=== PATIENT | female | born 1990 | race Caucasian/White ===

== ENCOUNTER 2017-01-18 18:21 | Inpatient (IN) | payer SELFPAY ==
[~2017-01-18] VITALS: Ht 160 cm; Wt 49.8 kg
[2017-01-18 18:24] VITALS: BP 158/96; PULSE 119; RESP 23; O2SAT 100
[2017-01-18] MEDS ORDERED: SODIUM CHLOR 0.9% 1000 ML INJ 1,000 ML IV ONE ×2 (18:45)
[2017-01-18] MEDS ORDERED: NALOXONE HCL 2 MG/2 ML VIAL IV PUSH ONE (18:45)
[2017-01-18] MEDS ORDERED: ONDANSETRON HCL 4 MG/2 ML VIAL IV PUSH ONE (18:45)
[2017-01-18 18:54] VITALS: O2SAT 100; O2SAT 98
--- NOTE | 2017-01-18 18:57 | PD ---
HPI Chief Complaint: OD/ Ingestion Time Seen by Provider: 18:32 Travel History International Travel<30 days: No Contact w/Intl Traveler<30days: No Traveled to known affect area: No History of Present Illness HPI Patient is a 27-year-old female who was brought to the emergency room by her friend after she overdosed on heroin. As per patient's friend, patient became unresponsive after using drugs today. Patient presented to the emergency room with in cardiopulmonary distress. CPR was initiated in triage [facility] Past Medical History Medical History: Denies Significant Hx ?: Unknown LMP: december 2016 Past Surgical History Surgical History: No Previous Surgery Social History Alcohol Use: Yes Tobacco Use: Yes (half pack a day ) Substance Use: Yes (heroid ) Allergies-Medications (Allergen,Severity, Reaction): Coded Allergies: No Known Allergies (Unverified , 01/18/17) Reported Meds & Prescriptions Reported Meds & Active Scripts Active No Active Prescriptions or Reported Medications Review of Systems ROS Limitations: Altered Mental Status Physical Exam Narrative GENERAL: patient with no pulses SKIN: Focused skin assessment blue and dusky HEAD: Atraumatic. Normocephalic. EYES: pinpoint. No scleral icterus. No injection or drainage. ENT: No nasal bleeding or discharge. Mucous membranes pink and moist. NECK: Trachea midline. No JVD. CARDIOVASCULAR: Asystole RESPIRATORY: No accessory muscle use. Clear to auscultation. Breath sounds equal bilaterally. GASTROINTESTINAL: Abdomen soft, non-tender, nondistended. Hepatic and splenic margins not palpable. MUSCULOSKELETAL: No obvious deformities. No clubbing. No cyanosis. No edema. Patient in cardiopulmonary arrest, no pulses Data Data Last Documented VS Vital Signs Date Time Temp Pulse Resp B/P (MAP) Pulse Ox O2 Delivery O2 Flow Rate FiO2 01/18/17 18:36 98 Room Air 01/18/17 18:36 2.00 01/18/17 18:28 121 21 01/18/17 18:24 158/96 (116) Orders Orders Complete Blood Count With Diff (01/18/17 18:33) Comprehensive Metabolic Panel (01/18/17 18:33) Urinalysis - C+S If Indicated (01/18/17 18:33) Electrocardiogram (01/18/17 18:33) Oximetry (01/18/17 18:33) Iv Access Insert/Monitor (01/18/17 18:33) Ecg Monitoring (01/18/17 18:33) Oxygen Administration (01/18/17 18:33) Beta Hcg (Quant/Titer) (01/18/17 18:33) Drug Screen, Random Urine (01/18/17 18:33) Alcohol (Ethanol) (01/18/17 18:33) Salicylates (Aspirin) (01/18/17 18:33) Tylenol (Acetaminophen) (01/18/17 18:33) B-Type Natriuretic Peptide (01/18/17 18:34) Ckmb (Isoenzyme) Profile (01/18/17 18:34) Prothrombin Time / Inr (Pt) (01/18/17 18:34) Act Partial Throm Time (Ptt) (01/18/17:34) Troponin I (01/18/17 18:34) Chest, Single Ap (01/18/17 18:34) Sodium Chlor 0.9% 1000 Ml Inj (Ns 1000 M (01/18/17 18:45) Naloxone Inj (Narcan Inj) (01/18/17 18:45) Ondansetron Inj (Zofran Inj) (01/18/17 18:45) Sodium Chlor 0.9% 1000 Ml Inj (Ns 1000 M (01/18/17 18:45) MDM Medical Decision Making Medical Screen Exam Complete: Yes Emergency Medical Condition: Yes Medical Record Reviewed: Yes Interpretation(s) Vital Signs Date Time Temp Pulse Resp B/P (MAP) Pulse Ox O2 Delivery O2 Flow Rate FiO2 01/18/17 18:36 98 Room Air 01/18/17 18:36 Room Air 2.00 01/18/17 18:28 121 21 97 Nasal Cannula 2.00 01/18/17 18:24 119 23 158/96 (116) 100 Differential Diagnosis drug overdose, cardiopulmonary arrest Narrative Course 27 year old male who presents to emergency room with cardiopulmonary arrest. patient was brought to the ER by her friend as she overdosed on heroine today. Patient was a cardiopulmonary arrest, with no pulses and no spontaneous respirations upon presentation to the emergency room. CPR was initiated, patient was bagged and acls protocol initiated After an IV line was established, patient was given Narcan 2 mg IV, zofran 4mg IV as well as IVF. Patient had spontaneous regain of pulses, patient became more arousable and eventually became conversive. Patient is currently alert and oriented x 3, reports that she accidently overdosed on heroine today. Denies si/hi. Plan to monitor patient on cardiac catheterization technologist at this time. Patient signed out to oncoming physician at change of shift. Scripts No Active Prescriptions or Reported Meds Lilliana Thorne DO Jan 18, 2017 18:57
[2017-01-18 19:18] LABS: HEMATOCRIT 41.9 % (35.0-46.0); MEAN CELL VOLUME 90.8 FL (80.0-100.0); MEAN CORPUSCULAR HEMOGLOBIN 30.8 PG (27.0-34.0); MEAN CORPUSCULAR HGB CONC 33.9 % (32.0-36.0); PLATELET COUNT 471 TH/MM3 (150-450); RED BLOOD COUNT 4.61 MIL/MM3 (4.00-5.30); RED CELL DISTRIBUTION WIDTH 13.7 % (11.6-17.2); WHITE BLOOD COUNT 22.6 TH/MM3 (4.0-11.0)
[2017-01-18 19:19] LABS: HEMO FLAGS AUTO DIFF
--- NOTE | 2017-01-18 19:25 | RADRPT ---
EXAM DATE/TIME: 01/18/2017 18:51 [place] COMPARISON: No previous studies available for comparison. INDICATIONS : Cardiac Distress MEDICAL HISTORY : None. SURGICAL HISTORY : None. ENCOUNTER: Initial ACUITY: 1 day PAIN SCORE: Non-responsive. LOCATION: Bilateral chest FINDINGS: A single view of the chest demonstrates the lungs to be symmetrically aerated without evidence of mas s, infiltrate or effusion. The cardiomediastinal contours are unremarkable. Osseous structures are intact. CONCLUSION: No acute disease. Kurt Adames MD on January 18, 2017 at 19:23 Board Certified Radiologist. This report was verified electronically.
[2017-01-18 19:30] LABS: APTT (PATIENT) 26.3 SEC (24.3-30.1); PROTHROMBIN TIME - PATIENT 11.3 SEC (9.8-11.6)
[2017-01-18 19:41] LABS: BACTERIA, URINE RARE /hpf; BLOOD, URINE SMALL (NEG); COMMENT (UR) CULT NOT INDICATED; CULTURE IF INDICATED CULT NOT INDICATED; GLUCOSE,URINE NEG (NEG); KETONE, URINE NEG (NEG); NITRITE,URINE NEG (NEG); PH, URINE 5.5 (5.0-8.5); SQUAMOUS EPITHELIAL CELL URINE 7 /hpf (0-5); URINE COLOR YELLOW (YELLW/STRAW)
[2017-01-18 19:43] LABS: ALT (GPT) 177 U/L (10-53)
[2017-01-18 19:48] LABS: NEUTROPHIL # MANUAL DIFF 12.4 TH/MM3 (1.8-7.7); POLYS (SEG NEUTROPHILS) 55 % (16-70); WBC DIFF SAMPLE 100
[2017-01-18 19:48] LABS: ALKALINE PHOSPHATASE 118 U/L (45-117); ANION GAP 14 MEQ/L (5-15); AST (GOT) 67 U/L (15-37); BETA HCG QUANT LESS THAN 1 MIU/ML (0-5); BICARBONATE 19.2 MEQ/L (21.0-32.0); BLOOD UREA NITROGEN 11 MG/DL (7-18); CHLORIDE 102 MEQ/L (98-107); CREATINE KINASE 106 U/L (26-192); GLOMERULAR FILTRATION RATE 51 ML/MIN (>89); POTASSIUM 3.2 MEQ/L (3.5-5.1); SODIUM (NA) 135 MEQ/L (136-145); TOTAL BILIRUBIN ADULT 1.7 MG/DL (0.2-1.0)
[2017-01-18 19:49] LABS: PLATELET ESTIMATE SMEAR HIGH (NORMAL); PLATELET MORPHOLOGY NORMAL (NORMAL); SCAN/DIFF FINAL DIFF MANUAL
[2017-01-18 19:58] LABS: ACETAMINOPHEN LESS THAN 2.0 MCG/ML (10.0-30.0); ALCOHOL 98 MG/DL (0-5)
[2017-01-18 20:10] LABS: CKMB 0.8 NG/ML (0.5-3.6)
[2017-01-18] MEDS ORDERED: POTASSIUM CHLORIDE 20 MEQ CONTROLLED RELEASE TAB PO ONE (20:30)
--- NOTE | 2017-01-18 20:39 | HHI.HP ---
[facility] Unknown Admission Diagnosis Post Code after heroin overdose, camara act Diagnoses: (1) Intentional heroin overdose Diagnosis: Principal (2) Suicide attempt Diagnosis: Principal (3) Cardiopulmonary arrest with successful resuscitation Diagnosis: Principal (4) Renal insufficiency Diagnosis: Principal (5) Leukocytosis Diagnosis: Principal (6) Alcohol intoxication Diagnosis: Principal Travel History International Travel<30 Days: No Contact w/Intl Traveler <30 Da: No Traveled to Known Affected Are: No History of Present Illness This is a 27-year-old female was brought to the ER by her friend secondary to apparent intentional ingestion of Heroin in suicide attempt. While in Triage, patient became unresponsive at which time CPR was initiated w/ success. S/p Narcan. Pt currently awake, alert and oriented x4. Ambulating without assistance. States she attempted suicide after finding out her girlfriend cheated on her. Currently under Camara Act. BP 158/96, HR 119, O2 sat 100% on RA. WBC 22.6. K+ 3.2. GFR 51. LFTs mildly elevated. Trop negative. HCG negative. INR 1.0. U/a negative. Urine Drug Screen positive for Opiates, Amphetamines, Benzo. Alcohol 98. CXR w/ no acute findings. Review of Systems Except as stated in HPI: all other systems reviewed are Neg ROS: 14 point review of systems otherwise negative. Past Family Social History Past Medical History PMH: Polysubstance Abuse Past Surgical History PAST SURGICAL HISTORY: None Allergies: Coded Allergies: No Known Allergies (Unverified , 01/18/17) Family History PAST FAMILY HISTORY: Reviewed. No h/o DM or CAD Social History PAST SOCIAL HISTORY: Positive for alcohol. Smokes 1.5ppd. +Heroin, Amphetamines, Benzo. Physical Exam Vital Signs Vital Signs Date Time Temp Pulse Resp B/P (MAP) Pulse Ox O2 Delivery O2 Flow Rate FiO2 01/18/17 18:54 100 15.00 100 01/18/17 18:54 98 High Flow Nasal Cannula 2.00 01/18/17 18:36 98 Room Air 01/18/17 18:36 Room Air 2.00 01/18/17 18:28 121 21 97 Nasal Cannula 2.00 01/18/17 18:24 119 23 158/96 (116) 100 Physical Exam PE: GENERAL: Young white female in no acute distress. HEENT: PERRLA, EOMI. No scleral icterus or conjunctival pallor. No lid lag or facial droop. CARDIOVASCULAR: Regular rate and rhythm. No obvious murmurs to auscultation. No chest tenderness to palpation. RESPIRATORY: No obvious rhonchi or wheezing. Clear to auscultation. Breath sounds equal bilaterally. GASTROINTESTINAL: Abdomen soft, non-tender, nondistended. BS normal. MUSCULOSKELETAL: Extremities without clubbing, cyanosis, or edema. No obvious deformities. NEUROLOGICAL: Awake, alert and oriented x4. Flat affect. No focal neurologic deficits. Moving both upper and lower extremities spontaneously. Laboratory Laboratory Tests Test 01/18/17 18:30 01/18/17 18:38 01/18/17 18:50 Blood Urea Nitrogen 11 Creatinine 0.95 Random Glucose 154 Total Protein 8.0 Albumin 4.0 Calcium Level 9.0 Alkaline Phosphatase 118 Aspartate Amino Transf (AST/SGOT) 67 Alanine Aminotransferase (ALT/SGPT) 177 Total Bilirubin 1.7 Sodium Level 135 Potassium Level 3.2 Chloride Level 102 Carbon Dioxide Level 19.2 Anion Gap 14 Estimat Glomerular Filtration Rate 51 Total Creatine Kinase 106 Creatine Kinase MB 0.8 Troponin I LESS THAN 0.02 Human Chorionic Gonadotropin, Quant LESS THAN 1 Salicylates Level LESS THAN 1.7 Acetaminophen Level LESS THAN 2.0 Ethyl Alcohol Level 98 White Blood Count 22.6 Red Blood Count 4.61 Hemoglobin 14.2 Hematocrit 41.9 Mean Corpuscular Volume 90.8 Mean Corpuscular Hemoglobin 30.8 Mean Corpuscular Hemoglobin Concent 33.9 Red Cell Distribution Width 13.7 Platelet Count 471 Mean Platelet Volume 8.7 CBC Comment AUTO DIFF Differential Total Cells Counted 100 Neutrophils % (Manual) 55 Lymphocytes % 39 Monocytes % 6 Neutrophils # (Manual) 12.4 Differential Comment FINAL DIFF MANUAL Platelet Estimate HIGH Platelet Morphology Comment NORMAL Red Cell Morphology Comment NORMAL Prothrombin Time 11.3 Prothromb Time International Ratio 1.0 Activated Partial Thromboplast Time 26.3 B-Type Natriuretic Peptide 3 Urine Color YELLOW Urine Turbidity HAZY Urine pH 5.5 Urine Specific [place] 1.007 Urine Protein TRACE Urine Glucose (UA) NEG Urine Ketones NEG Urine Occult Blood SMALL Urine Nitrite NEG Urine Bilirubin NEG Urine Urobilinogen 2.0 Urine Leukocyte Esterase TRACE Urine RBC 6 Urine WBC 4 Urine Squamous Epithelial Cells 7 Urine Amorphous Sediment RARE Urine Bacteria RARE Microscopic Urinalysis Comment CULT NOT INDICATED Result Diagram: 01/18/17183701/18/171829 Caprini VTE Risk Assessment Caprini VTE Risk Assessment: No/Low Risk (score <= 1) Caprini Risk Assessment Model Point Value = 1 Point Value = 2 Point Value = 3 Point Value = 5 Age 41-60 Minor surgery BMI > 25 kg/m2 Swollen legs Varicose veins or History of unexplained or recurrent spontaneous Oral contraceptives or hormone replacement Sepsis (< 1 month) Serious lung disease, including pneumonia (< 1 month) Abnormal pulmonary function Acute myocardial infarction Congestive heart failure (< 1 month) History of inflammatory bowel disease Medical patient at bed rest Age 61-74 Arthroscopic surgery Major open surgery (> 45 min) Laparoscopic surgery (> 45 min) Malignancy Confined to bed (> 72 hours) Immobilizing plaster cast Central venous access Age >= 75 History of VTE Family history of VTE Factor V Leiden Prothrombin [id number] Lupus anticoagulant Anticardiolipin antibodies Elevated serum homocysteine Heparin-induced thrombocytopenia Other congenital or acquired thrombophilia Stroke (< 1 month) Elective arthroplasty Hip, pelvis, or leg fracture Acute spinal cord injury (< 1 month) Prophylaxis Regimen Total Risk Factor Score Risk Level Prophylaxis Regimen 0-1 Low Early ambulation 2 Moderate Order ONE of the following: *Sequential Compression Device (SCD) *Heparin 5000 units SQ BID 3-4 Higher Order ONE of the following medications: *Heparin 5000 units SQ TID *Enoxaparin/Lovenox 40 mg SQ daily (WT < 150 kg, CrCl > 30 mL/min) *Enoxaparin/Lovenox 30 mg SQ daily (WT < 150 kg, CrCl > 10-29 mL/min) *Enoxaparin/Lovenox 30 mg SQ BID (WT < 150 kg, CrCl > 30 mL/min) AND/OR *Sequential Compression Device (SCD) 5 or more Highest Order ONE of the following medications: *Heparin 5000 units SQ TID (Preferred with Epidurals) *Enoxaparin/Lovenox 40 mg SQ daily (WT < 150 kg, CrCl > 30 mL/min) *Enoxaparin/Lovenox 30 mg SQ daily (WT < 150 kg, CrCl > 10-29 mL/min) *Enoxaparin/Lovenox 30 mg SQ BID (WT < 150 kg, CrCl > 30 mL/min) AND *Sequential Compression Device (SCD) Assessment and Plan Problem List: (1) Intentional heroin overdose ICD Code: T40.1X2A - Poisoning by heroin, intentional self-harm, initial encounter Status: Acute (2) Cardiopulmonary arrest with successful resuscitation ICD Code: I46.9 - Cardiac arrest, cause unspecified Status: Acute (3) Suicide attempt ICD Code: T14.91XA - Suicide attempt, initial encounter (4) Alcohol intoxication ICD Code: F10.929 - Alcohol use, unspecified with intoxication, unspecified (5) Leukocytosis ICD Code: D72.829 - Elevated white blood cell count, unspecified (6) Renal insufficiency ICD Code: N28.9 - Disorder of kidney and ureter, unspecified Assessment and Plan A/P: 1. Heroin Overdose: Intentional. Found by friend who brought her to ER, s/p Narcan, now AA&O 2. S/p Cardiopulmonary Arrest: w/ successful resuscitation, unresponsive while in Triage after Heroin OD, CPR initiated, s/p Narcan w/ immediate reversal. Currently AA&O, back to baseline, ambulating w/o assistance. Will admit to ICU for close monitoring in light of cardiopulmonary arrest. NO analgesics. 3. Suicide Attempt: Intentional Heroin OD in suicide attempt, reports having emotional pain after finding out girlfriend cheated on her. Currently under Camara Act. [facility] 4. Alcohol Intoxication: Alcohol 89. Seizure Precautions, hold CIWA in light of recent Cardiac Arrest from OD. 5. Tobacco Abuse: NicoDerm prn if needed. 6. DVT Prophylaxis: SCD/Teds. 7. Case discussed w/ ER physician at length. Physician Certification 2 Midnight Certification Type: Admission for Inpatient Services Order for Inpatient Services The services are ordered in accordance with Medicare regulations or non- Medicare payer requirements, as applicable. In the case of services not specified as inpatient-only, they are appropriately provided as inpatient services in accordance with the 2-midnight benchmark. Estimated LOS (days): 2 days is the estimated time the patient will need to remain in the hospital, assuming treatment plan goals are met and no additional complications. Post-Hospital Plan: Not yet determined Problem Qualifiers (1) Intentional heroin overdose: Qualified Codes: T40.1X2A - Poisoning by heroin, intentional self-harm, initial encounter Seema Martinez MD Jan 18, 2017 20:39
[2017-01-18 20:45] VITALS: BP 89/55; PULSE 81; RESP 14; O2SAT 90
[2017-01-18] MEDS ORDERED: MISCELLANEOUS NURSING INFORMATION XX SCH (20:45)
[2017-01-18] MEDS ORDERED: SENNOSIDES 8.6 MG TAB PO PRN (20:45)
[2017-01-18] MEDS ORDERED: MAGNESIUM HYDROXIDE SUSP 30 ML CUP PO PRN (20:45)
[2017-01-18] MEDS ORDERED: LACTULOSE SYRUP 20 GM/30 ML CUP PO PRN (20:45)
[2017-01-18] MEDS ORDERED: ONDANSETRON HCL 4 MG/2 ML VIAL IVP PRN (20:45)
[2017-01-18] MEDS ORDERED: ACETAMINOPHEN 325 MG TAB PO PRN (20:45)
[2017-01-18] MEDS ORDERED: CHLORHEXIDINE GLUCONATE 2 % 1 PACK (2 CLOTHS) TOP PRN (20:45)
[2017-01-18] MEDS ORDERED: BISACODYL 10 MG SUPP RECTAL PRN (20:45)
[2017-01-18] MEDS ORDERED: SODIUM CHLORIDE 0.9% FLUSH 10 ML FLUSH IV FLUSH PRN (20:45)
[2017-01-18 20:50] VITALS: BP 92/54; PULSE 74; RESP 14; O2SAT 100
[2017-01-18] MEDS: SODIUM CHLORIDE 0.9% FLUSH 10 ML FLUSH IV FLUSH SCH (21:00)
[2017-01-18] MEDS: DOCUSATE SODIUM 50 MG/SENNA 8.6 MG TAB PO SCH (21:00)
--- NOTE | 2017-01-18 21:34 | PD ---
Physical Exam Narrative General: The patient is well-developed well-nourished female, tearful on examination, otherwise in no acute distress. Head and Neck exam: Head is normocephalic atraumatic. Eyes: EOMI, pupils are equal round and reactive to light. Nose: Midline septum with pink mucous membranes Mouth: Dentition unremarkable. Moist mucus membranes. Posterior oropharynx is not erythematous. No tonsillar hypertrophy. Uvula midline. Airway patent. Neck: No palpable lymphadenopathy. No nuchal rigidity. No thyromegaly. Cardiovascular: Regular rate and rhythm without murmurs, gallops, or rubs. Lungs: Clear to auscultation bilaterally. No wheezes, rhonchi, or rales. Abdomen: Soft, without tenderness to palpation in all 4 quadrants of the abdomen. No guarding, rebound, or rigidity. Normal bowel sounds are audible. No tenderness on palpation of McBurney's point. Extremities: No clubbing, cyanosis, or edema. 2+ pulses in all 4 extremities. Back: No costovertebral angle tenderness to palpation. Neurologic Exam: Grossly nonfocal. Skin Exam: No rash noted. Intact skin that is warm and dry. Data Data Last Documented VS Vital Signs Date Time Temp Pulse Resp B/P (MAP) Pulse Ox O2 Delivery O2 Flow Rate FiO2 01/18/17 18:54 100 15.00 100 01/18/17 18:54 High Flow Nasal Cannula 01/18/17 18:28 121 21 01/18/17 18:24 158/96 (116) Orders Orders Complete Blood Count With Diff (01/18/17 18:33) Comprehensive Metabolic Panel (01/18/17 18:33) Urinalysis - C+S If Indicated (01/18/17 18:33) Oximetry (01/18/17 18:33) Iv Access Insert/Monitor (01/18/17 18:33) Ecg Monitoring (01/18/17 18:33) Oxygen Administration (01/18/17 18:33) Beta Hcg (Quant/Titer) (01/18/17 18:33) Drug Screen, Random Urine (01/18/17 18:33) Alcohol (Ethanol) (01/18/17 18:33) Salicylates (Aspirin) (01/18/17 18:33) Tylenol (Acetaminophen) (01/18/17 18:33) B-Type Natriuretic Peptide (01/18/17 18:34) Prothrombin Time / Inr (Pt) (01/18/17 18:34) Act Partial Throm Time (Ptt) (01/18/17 18:34) Chest, Single Ap (01/18/17 18:34) Sodium Chlor 0.9% 1000 Ml Inj (Ns 1000 M (01/18/17 18:45) Naloxone Inj (Narcan Inj) (01/18/17 18:45) Ondansetron Inj (Zofran Inj) (01/18/17 18:45) Sodium Chlor 0.9% 1000 Ml Inj (Ns 1000 M (01/18/17 18:45) Ckmb (Isoenzyme) Profile (01/18/17 18:33) Troponin I (01/18/17 18:33) CKMB (01/18/17 18:30) CKMB% (01/18/17 18:30) Potassium Chloride (Kcl) (01/18/17 20:30) Admit Order (Ed Use Only) (01/18/17 20:33) Labs Laboratory Tests Test 01/18/17 18:30 01/18/17 18:38 01/18/17 18:50 Blood Urea Nitrogen 11 MG/DL Creatinine 0.95 MG/DL Random Glucose 154 MG/DL Total Protein 8.0 GM/DL Albumin 4.0 GM/DL Calcium Level 9.0 MG/DL Alkaline Phosphatase 118 U/L Aspartate Amino Transf (AST/SGOT) 67 U/L Alanine Aminotransferase (ALT/SGPT) 177 U/L Total Bilirubin 1.7 MG/DL Sodium Level 135 MEQ/L Potassium Level 3.2 MEQ/L Chloride Level 102 MEQ/L Carbon Dioxide Level 19.2 MEQ/L Anion Gap 14 MEQ/L Estimat Glomerular Filtration Rate 51 ML/MIN Total Creatine Kinase 106 U/L Creatine Kinase MB 0.8 NG/ML Troponin I LESS THAN 0.02 NG/ML Human Chorionic Gonadotropin, Quant LESS THAN 1 MIU/ML Salicylates Level LESS THAN 1.7 MG/DL Acetaminophen Level LESS THAN 2.0 MCG/ML Ethyl Alcohol Level 98 MG/DL White Blood Count 22.6 TH/MM3 Red Blood Count 4.61 MIL/MM3 Hemoglobin 14.2 GM/DL Hematocrit 41.9 % Mean Corpuscular Volume 90.8 FL Mean Corpuscular Hemoglobin 30.8 PG Mean Corpuscular Hemoglobin Concent 33.9 % Red Cell Distribution Width 13.7 % Platelet Count 471 TH/MM3 Mean Platelet Volume 8.7 FL CBC Comment AUTO DIFF Differential Total Cells Counted 100 Neutrophils % (Manual) 55 % Lymphocytes % 39 % Monocytes % 6 % Neutrophils # (Manual) 12.4 TH/MM3 Differential Comment FINAL DIFF MANUAL Platelet Estimate HIGH Platelet Morphology Comment NORMAL Red Cell Morphology Comment NORMAL Prothrombin Time 11.3 SEC Prothromb Time International Ratio 1.0 RATIO Activated Partial Thromboplast Time 26.3 SEC B-Type Natriuretic Peptide 3 PG/ML Urine Color YELLOW Urine Turbidity HAZY Urine pH 5.5 Urine Specific [place] 1.007 Urine Protein TRACE mg/dL Urine Glucose (UA) NEG mg/dL Urine Ketones NEG mg/dL Urine Occult Blood SMALL Urine Nitrite NEG Urine Bilirubin NEG Urine Urobilinogen 2.0 MG/DL Urine Leukocyte Esterase TRACE Urine RBC 6 /hpf Urine WBC 4 /hpf Urine Squamous Epithelial Cells 7 /hpf Urine Amorphous Sediment RARE Urine Bacteria RARE /hpf Microscopic Urinalysis Comment CULT NOT INDICATED MDM Medical Record Reviewed: Yes Supervised Visit with VISHNU: No Narrative Course During the course of the patients emergency department visit, the patients history, examination, and differential diagnosis were reviewed with the patient. The patient was placed on a teletypesetter monitor with oximetry and frequent blood pressure monitoring. The patient had IV access obtained and blood work sent for analysis. The patient's case was checked out to me by Dr. Thorne. The patient has a history of coming and by private vehicle unresponsive in cardiopulmonary arrest. The patient had IV access obtained and was given 2 mg of Narcan. The patient then awakened just prior to being intubated. While the patient was unresponsive she had no cardiac activity and chest compressions were divided as well as the patient was oxygenated by bag valve mask. After awakening, the patient reported that she wanted to leave. She was able to ambulate to the bathroom. I assumed care of the patient. When I arrived in the room some other staff was there. The patient reported to me and the other staff that she did use heroin. The patient reports that she was trying to end her pain. When questioned regarding what pain she is speaking of, she reports that she has emotional pain related to finding out that her partner cheated on her with [address] Thorne was still available in the emergency department. I did discuss this further with her, given the findings and the report of trying to end her emotional pain by overdosing on heroin, she agreed that the patient should be Camara acted. A Camara act was written by me. The patient was initially provided normal saline IV fluids, Zofran for nausea, potassium was supplemented due to mild hypokalemia. The patients laboratory studies were reviewed and remarkable for a white count of 22.2 which is likely related to a stress response from her heroin overdose, CMP is remarkable for sodium of 135, potassium 3.2, CO2 19.2, glucose 154, total bilirubin 1.7, AST 67, ALT 177 suggestive of hepatitis, troponin I less than 0.02, CPK 106, BNP 3, quantitative beta hCG is 1. PT PTT are within normal limits, urine drug screen is pending at admission, salicylate less than 1.7, acetaminophen less than 2, alcohol 98, urinalysis is unremarkable. Radiology studies were reviewed and remarkable for chest x-ray that shows no acute cardiopulmonary disease. The patients results were discussed with the patient, including the plan of care. I explained that further testing and/ or monitoring is indicated based on the patients history, examination, and/ or laboratory findings. Therefore, I recommended admission for additional evaluation. The patient expressed understanding and was agreeable with this plan. The patient was admitted to the hospital in guarded condition and [facility] Physician Communication Physician Communication The patient's case was discussed with Dr. Martinez who did agree to admit the patient for further evaluation and treatment at this time. Diagnosis Primary Impression: Cardiopulmonary arrest with successful resuscitation Additional Impression: Intentional heroin overdose Qualified Codes: T40.1X2A - Poisoning by heroin, intentional self-harm, initial encounter Admitting Information Admitting Physician Requests: Admit Scripts No Active Prescriptions or Reported Meds Raysa Lozano MD Jan 18, 2017 21:34
[2017-01-18] MEDS: SODIUM CHLOR 0.9% 1000 ML INJ 1,000 ML IV SCH (21:54)
[2017-01-18 21:55] VITALS: BP 84/51; PULSE 80; RESP 14; O2SAT 98
[2017-01-18 22:30] VITALS: BP 94/50; PULSE 69; RESP 23; TEMP 97.8; O2SAT 100
[2017-01-19] VITALS (10 sets, daily range): BP systolic 87–98; BP diastolic 57–66; PULSE 70–100; RESP 12–15; TEMP 97.9–98.4; O2SAT 96–100
[2017-01-19] MEDS ORDERED: DILA100C PO ×2 (01:46→14:09)
[2017-01-19] MEDS ORDERED: CHLORHEXIDINE GLUCONATE 2 % 1 PACK (2 CLOTHS) TOP SCH (04:00)
[2017-01-19] MEDS: SODIUM CHLOR 0.9% 1000 ML INJ 1,000 ML IV SCH ×2 (07:04→17:00)
[2017-01-19] MEDS: DOCUSATE SODIUM 50 MG/SENNA 8.6 MG TAB PO SCH (08:56)
[2017-01-19] MEDS: SODIUM CHLORIDE 0.9% FLUSH 10 ML FLUSH IV FLUSH SCH (08:56)
[2017-01-19 09:02] LABS: AUTOMATED NEUTROPHIL # 7.1 TH/MM3 (1.8-7.7); BASOPHIL # 0.1 TH/MM3 (0-0.2); BASOPHIL % 0.7 % (0.0-2.0); EOSINOPHIL # 0.1 TH/MM3 (0-0.4); EOSINOPHIL % 1.1 % (0.0-4.0); HEMATOCRIT 39.7 % (35.0-46.0); HEMO FLAGS DIFF FINAL; LYMPH % 15.6 % (9.0-44.0); LYMPHOCYTE # 1.5 TH/MM3 (1.0-4.8); MEAN CELL VOLUME 92.2 FL (80.0-100.0); MEAN CORPUSCULAR HEMOGLOBIN 30.8 PG (27.0-34.0); MEAN CORPUSCULAR HGB CONC 33.4 % (32.0-36.0); MONO % 8.7 % (0.0-8.0); NEUT % 73.9 % (16.0-70.0); PLATELET COUNT 254 TH/MM3 (150-450); RED BLOOD COUNT 4.31 MIL/MM3 (4.00-5.30); RED CELL DISTRIBUTION WIDTH 13.8 % (11.6-17.2); WHITE BLOOD COUNT 9.6 TH/MM3 (4.0-11.0)
[2017-01-19 10:06] LABS: ALT (GPT) 136 U/L (10-53); ANION GAP 8 MEQ/L (5-15); AST (GOT) 61 U/L (15-37); BICARBONATE 23.6 MEQ/L (21.0-32.0); BLOOD UREA NITROGEN 8 MG/DL (7-18); CHLORIDE 108 MEQ/L (98-107); GLOMERULAR FILTRATION RATE 114 ML/MIN (>89); POTASSIUM 3.5 MEQ/L (3.5-5.1); SODIUM (NA) 140 MEQ/L (136-145)
[2017-01-19 10:08] LABS: ALKALINE PHOSPHATASE 91 U/L (45-117); TOTAL BILIRUBIN ADULT 1.6 MG/DL (0.2-1.0)
--- NOTE | 2017-01-19 13:21 | PD.PSY.CON ---
Provisional Diagnosis Admission Date Jan 18, 2017 at 20:35 [place] I. Polysubstance dependence, including amphetamines, opiates, alcohol, history of depression [place] II. unspecified personality disorder, rule out borderline p personality disorder [place] III. Seizures History of Present Illness Service Psychiatry Consult Requested By Overdose Reason for Consult Overdose Primary Care Physician Unknown HPI The patient is a 27-year-old woman, domiciled with her fianc, employed, with psychiatric history of polysubstance dependence, depression, no previous significant admissions, no previous suicidal attempts, history of self cutting behavior with no SI, she reports that she has been and Xanax 2 mg twice a day for anxiety, prescribed by PCP, medical history of seizures, who was brought to the ER by her friend secondary to apparent intentional ingestion of Heroin in suicide attempt. While in Triage, patient became unresponsive at which time CPR was initiated w/ success. S/p Narcan. Pt currently awake, alert and oriented x4. Ambulating without assistance. States she attempted suicide after finding out her girlfriend cheated on her. Currently under Camara Act. BP 158/96, HR 119, O2 sat 100% on RA. WBC 22.6. K+ 3.2. GFR 51. LFTs mildly elevated. Trop negative. HCG negative. INR 1.0. U/a negative. Urine Drug Screen positive for Opiates, Amphetamines, Benzo. Alcohol 98. CXR w/ no acute findings. On psychiatric evaluation today patient denies suicidal intention in recent overdose. Patient says that for the first time in her life he has reasons to live for. Patient says that she just recently started a new job. She recently moved to [facility] "with the right people". Patient reports that she has been very happy, motivated, faithful. She does report that she had an argument with her daughter for an before overdosing, and she was distressed, but denies suicidal ideations. Patient reports using several drugs for many years. She says she doesn't do everyday. She mostly uses heroine and alcohol, at least once a week. Patient denies depressive symptoms, she denies anxiety, she denies anhedonia, denies hopelessness, she denies helplessness, she denies lack of motivation, she denies suicidal and homicidal ideation. She denies visual and auditory hallucinations. Oriented 3, no fluctuation of consciousness or gross cognitive impairment present. Review of Systems Except as stated in HPI: all other systems reviewed are Neg Past Family Social History Coded Allergies: No Known Allergies (Unverified , 01/18/17) Reported Medications Phenytoin Extended (Dilantin) 100 Mg Cap, 100 MG PO TID for Control Seizures, # 90 CAP 0 Refills 01/19/17 Current Medications Medications (Trade) Dose Ordered Sig/Jasper Route Start Time Stop Time Status Last Admin Miscellaneous Information 1 Q361D XX 01/18/17 20:45 (Chlorhexidine 2% Cloth) 3 pack Taper DAILY@04 TOP 01/19/17 04:00 01/15/18 03:59 01/19/17 04:15 (Chlorhexidine 2% Cloth) 3 pack UNSCH PRN TOP 01/18/17 20:45 Sodium Chloride 1,000 ml @ 100 mls/hr Q10H IV 01/18/17 21:00 01/19/17 07:04 (NS Flush) 2 ml UNSCH PRN IV FLUSH 01/18/17 20:45 (NS Flush) 2 ml BID IV FLUSH 01/18/17 21:00 (Zofran Inj) 4 mg Q6H PRN IVP 01/18/17 20:45 (Tylenol) 650 mg Q6H PRN PO 01/18/17 20:45 (Cecilia-Colace) 1 tab BID PO 01/18/17 21:00 (Milk Of Magnesia Liq) 30 ml Q12H PRN PO 01/18/17 20:45 (Senokot) 17.2 mg Q12H PRN PO 01/18/17 20:45 (Dulcolax Supp) 10 mg DAILY PRN RECTAL 01/18/17 20:45 (Lactulose Liq) 30 ml DAILY PRN PO 01/18/17 20:45 Family Psych History Her mother has schizophrenia Social History Patient was born and raised in [place], she lives in [facility], she lives with her fianc, she has a daughter, she is unemployed, her highest level of education is 10th grade Patient's Strengths (min. 2) Verbal communication Physical Exam Vital Signs Vital Signs Date Time Temp Pulse Resp B/P (MAP) Pulse Ox O2 Delivery O2 Flow Rate FiO2 01/19/17 12:00 81 01/19/17 12:00 98.2 12 98/57 (71) 96 01/19/17 08:23 Nasal Cannula 2.00 01/18/17 18:54 100 I/O 01/19/17 01/19/17 01/20/17 08:00 16:00 00:00 Intake Total 973 ml Balance 973 ml Lab Results Test 01/18/17 18:30 01/18/17 18:38 01/18/17 18:50 01/18/17 23:00 Blood Urea Nitrogen 11 MG/DL Creatinine 0.95 MG/DL Random Glucose 154 MG/DL Total Protein 8.0 GM/DL Albumin 4.0 GM/DL Calcium Level 9.0 MG/DL Alkaline Phosphatase 118 U/L Aspartate Amino Transf (AST/SGOT) 67 U/L Alanine Aminotransferase (ALT/SGPT) 177 U/L Total Bilirubin 1.7 MG/DL Sodium Level 135 MEQ/L Potassium Level 3.2 MEQ/L Chloride Level 102 MEQ/L Carbon Dioxide Level 19.2 MEQ/L Anion Gap 14 MEQ/L Estimat Glomerular Filtration Rate 51 ML/MIN Total Creatine Kinase 106 U/L Creatine Kinase MB 0.8 NG/ML Troponin I LESS THAN 0.02 NG/ML Human Chorionic Gonadotropin, Quant LESS THAN 1 MIU/ML Salicylates Level LESS THAN 1.7 MG/DL Acetaminophen Level LESS THAN 2.0 MCG/ML Ethyl Alcohol Level 98 MG/DL White Blood Count 22.6 TH/MM3 Red Blood Count 4.61 MIL/MM3 Hemoglobin 14.2 GM/DL Hematocrit 41.9 % Mean Corpuscular Volume 90.8 FL Mean Corpuscular Hemoglobin 30.8 PG Mean Corpuscular Hemoglobin Concent 33.9 % Red Cell Distribution Width 13.7 % Platelet Count 471 TH/MM3 Mean Platelet Volume 8.7 FL CBC Comment AUTO DIFF Differential Total Cells Counted 100 Neutrophils % (Manual) 55 % Lymphocytes % 39 % Monocytes % 6 % Neutrophils # (Manual) 12.4 TH/MM3 Differential Comment FINAL DIFF MANUAL Platelet Estimate HIGH Platelet Morphology Comment NORMAL Red Cell Morphology Comment NORMAL Prothrombin Time 11.3 SEC Prothromb Time International Ratio 1.0 RATIO Activated Partial Thromboplast Time 26.3 SEC B-Type Natriuretic Peptide 3 PG/ML Urine Color YELLOW Urine Turbidity HAZY Urine pH 5.5 Urine Specific [place] 1.007 Urine Protein TRACE mg/dL Urine Glucose (UA) NEG mg/dL Urine Ketones NEG mg/dL Urine Occult Blood SMALL Urine Nitrite NEG Urine Bilirubin NEG Urine Urobilinogen 2.0 MG/DL Urine Leukocyte Esterase TRACE Urine RBC 6 /hpf Urine WBC 4 /hpf Urine Squamous Epithelial Cells 7 /hpf Urine Amorphous Sediment RARE Urine Bacteria RARE /hpf Microscopic Urinalysis Comment CULT NOT INDICATED Urine Opiates Screen POS Urine Barbiturates Screen NEG Urine Amphetamines Screen POS Urine Benzodiazepines Screen POS Urine Cocaine Screen NEG Urine Cannabinoids Screen NEG Nasal Screen MRSA (PCR) MRSA NOT DETECTED Test 01/19/17 08:20 White Blood Count 9.6 TH/MM3 Red Blood Count 4.31 MIL/MM3 Hemoglobin 13.3 GM/DL Hematocrit 39.7 % Mean Corpuscular Volume 92.2 FL Mean Corpuscular Hemoglobin 30.8 PG Mean Corpuscular Hemoglobin Concent 33.4 % Red Cell Distribution Width 13.8 % Platelet Count 254 TH/MM3 Mean Platelet Volume 8.4 FL Neutrophils (%) (Auto) 73.9 % Lymphocytes (%) (Auto) 15.6 % Monocytes (%) (Auto) 8.7 % Eosinophils (%) (Auto) 1.1 % Basophils (%) (Auto) 0.7 % Neutrophils # (Auto) 7.1 TH/MM3 Lymphocytes # (Auto) 1.5 TH/MM3 Monocytes # (Auto) 0.8 TH/MM3 Eosinophils # (Auto) 0.1 TH/MM3 Basophils # (Auto) 0.1 TH/MM3 CBC Comment DIFF FINAL Differential Comment Blood Urea Nitrogen 8 MG/DL Creatinine 0.63 MG/DL Random Glucose 86 MG/DL Total Protein 6.2 GM/DL Albumin 3.1 GM/DL Calcium Level 7.9 MG/DL Alkaline Phosphatase 91 U/L Aspartate Amino Transf (AST/SGOT) 61 U/L Alanine Aminotransferase (ALT/SGPT) 136 U/L Total Bilirubin 1.6 MG/DL Sodium Level 140 MEQ/L Potassium Level 3.5 MEQ/L Chloride Level 108 MEQ/L Carbon Dioxide Level 23.6 MEQ/L Anion Gap 8 MEQ/L Estimat Glomerular Filtration Rate 114 ML/MIN Mental Status Examination Appearance: Appropriate Consciousness: Alert Orientation: x4 Motor Activity: Normal gait Speech: Unremarkable Language: Adequate Fund of Knowledge: Adequate Attention and Concentration: Adequate Memory: Unremarkable Mood: Appropriate Affect: Appropriate Thought Process & Associations: Intact Thought Content: Appropriate Hallucination Type: None Delusion Type: None Suicidal Ideation: No Suicidal Plan: No Suicidal Intention: No Homicidal Ideation: No Homicidal Plan: No Homicidal Intention: No Insight: Adequate Judgment: Adequate Assessment & Plan Problem List: (1) Polysubstance dependence ICD Codes: F19.20 - Other psychoactive substance dependence, uncomplicated Assessment & Plan: On psychiatric evaluation today patient is calm, cooperative , a little bit irritable. Patient denies suicidal intention in recent overdose with heroine. Patient denies symptomatology of depression, anxiety, gail or psychosis. She denies suicidal and homicidal ideation. She reports that she has recently moved to [place], found a new job and is starting new projects. Overdose seems to be related with poor impulse control and poor judgment rather than a primary major psychiatric illness decompensation. Patient was offered rehabilitation program referral, but she declines. Extensive support, motivation and psychoeducation provided. She does not meet criteria for involuntary admission. Camara act will be lifted. Assessment & Plan Estimated LOS: Cash De MD Jan 19, 2017 13:21
--- NOTE | 2017-01-19 14:04 | HHI.PR ---
Subjective Remarks This is a 27-year-old female was brought to the ER by her friend secondary to apparent intentional ingestion of Heroin in suicide attempt. While in Triage, patient became unresponsive at which time CPR was initiated w/ success. S/p Narcan. Pt currently awake, alert and oriented x4. Ambulating without assistance. States she attempted suicide after finding out her girlfriend cheated on her. Currently under Camara Act. BP 158/96, HR 119, O2 sat 100% on RA. WBC 22.6. K+ 3.2. GFR 51. LFTs mildly elevated. Trop negative. HCG negative. INR 1.0. U/a negative. Urine Drug Screen positive for Opiates, Amphetamines, Benzo. Alcohol 98. CXR w/ no acute findings. 01-19 patient has been cleared by psychiatry Camara act HAS been lifted Wants to go home Wants to continue to live Has some pain from chest compressions Has some cough We'll give incentive spirometry Mucinex Continue on multivitamin thiamine and folic acid Refill her Dilantin And discharge her to home Objective Vitals Vital Signs Date Time Temp Pulse Resp B/P (MAP) Pulse Ox O2 Delivery O2 Flow Rate FiO2 01/19/17 12:00 81 01/19/17 12:00 98.2 97 12 98/57 (71) 96 01/19/17 10:00 91 01/19/17 08:23 97 Nasal Cannula 2.00 01/19/17 08:00 98.4 97 15 95/59 (71) 99 01/19/17 08:00 95 01/19/17 07:00 99 Nasal Cannula 2.00 01/19/17 06:00 83 01/19/17 04:00 83 01/19/17 04:00 97.9 70 12 94/61 (72) 97 01/19/17 00:00 70 15 87/66 (73) 100 01/19/17 00:00 70 01/18/17 22:36 01/18/17 22:30 97.8 69 23 94/50 (65) 100 01/18/17 21:55 80 14 84/51 (62) 98 Room Air 01/18/17 20:50 74 14 92/54 (67) 100 Nasal Cannula 3.00 01/18/17 20:50 92 Nasal Cannula 3.00 01/18/17 20:45 81 14 89/55 (66) 90 Room Air 01/18/17 18:54 100 15.00 100 01/18/17 18:54 98 High Flow Nasal Cannula 2.00 01/18/17 18:36 98 Room Air 01/18/17 18:36 Room Air 2.00 01/18/17 18:28 121 21 97 Nasal Cannula 2.00 01/18/17 18:24 119 23 158/96 (116) 100 I/O 01/18/17 01/18/17 01/18/17 01/19/17 01/19/17 01/19/17 07:00 15:00 23:00 07:00 15:00 23:00 Intake Total 1000 ml 973 ml Balance 1000 ml 973 ml Intake Oral 240 ml IV Total 1000 ml 733 ml # Voids 1 Result Diagram: 01/19/1720 01/19/17 0820 Other Results Laboratory Tests Test 01/18/17 18:30 01/18/17 18:38 01/18/17 18:50 01/18/17 23:00 Blood Urea Nitrogen 11 MG/DL Creatinine 0.95 MG/DL Random Glucose 154 MG/DL Total Protein 8.0 GM/DL Albumin 4.0 GM/DL Calcium Level 9.0 MG/DL Alkaline Phosphatase 118 U/L Aspartate Amino Transf (AST/SGOT) 67 U/L Alanine Aminotransferase (ALT/SGPT) 177 U/L Total Bilirubin 1.7 MG/DL Sodium Level 135 MEQ/L Potassium Level 3.2 MEQ/L Chloride Level 102 MEQ/L Carbon Dioxide Level 19.2 MEQ/L Anion Gap 14 MEQ/L Estimat Glomerular Filtration Rate 51 ML/MIN Total Creatine Kinase 106 U/L Creatine Kinase MB 0.8 NG/ML Troponin I LESS THAN 0.02 NG/ML Human Chorionic Gonadotropin, Quant LESS THAN 1 MIU/ML Salicylates Level LESS THAN 1.7 MG/DL Acetaminophen Level LESS THAN 2.0 MCG/ML Ethyl Alcohol Level 98 MG/DL White Blood Count 22.6 TH/MM3 Red Blood Count 4.61 MIL/MM3 Hemoglobin 14.2 GM/DL Hematocrit 41.9 % Mean Corpuscular Volume 90.8 FL Mean Corpuscular Hemoglobin 30.8 PG Mean Corpuscular Hemoglobin Concent 33.9 % Red Cell Distribution Width 13.7 % Platelet Count 471 TH/MM3 Mean Platelet Volume 8.7 FL CBC Comment AUTO DIFF Differential Total Cells Counted 100 Neutrophils % (Manual) 55 % Lymphocytes % 39 % Monocytes % 6 % Neutrophils # (Manual) 12.4 TH/MM3 Differential Comment FINAL DIFF MANUAL Platelet Estimate HIGH Platelet Morphology Comment NORMAL Red Cell Morphology Comment NORMAL Prothrombin Time 11.3 SEC Prothromb Time International Ratio 1.0 RATIO Activated Partial Thromboplast Time 26.3 SEC B-Type Natriuretic Peptide 3 PG/ML Urine Color YELLOW Urine Turbidity HAZY Urine pH 5.5 Urine Specific [place] 1.007 Urine Protein TRACE mg/dL Urine Glucose (UA) NEG mg/dL Urine Ketones NEG mg/dL Urine Occult Blood SMALL Urine Nitrite NEG Urine Bilirubin NEG Urine Urobilinogen 2.0 MG/DL Urine Leukocyte Esterase TRACE Urine RBC 6 /hpf Urine WBC 4 /hpf Urine Squamous Epithelial Cells 7 /hpf Urine Amorphous Sediment RARE Urine Bacteria RARE /hpf Microscopic Urinalysis Comment CULT NOT INDICATED Urine Opiates Screen POS Urine Barbiturates Screen NEG Urine Amphetamines Screen POS Urine Benzodiazepines Screen POS Urine Cocaine Screen NEG Urine Cannabinoids Screen NEG Nasal Screen MRSA (PCR) MRSA NOT DETECTED Test 01/19/17 08:20 White Blood Count 9.6 TH/MM3 Red Blood Count 4.31 MIL/MM3 Hemoglobin 13.3 GM/DL Hematocrit 39.7 % Mean Corpuscular Volume 92.2 FL Mean Corpuscular Hemoglobin 30.8 PG Mean Corpuscular Hemoglobin Concent 33.4 % Red Cell Distribution Width 13.8 % Platelet Count 254 TH/MM3 Mean Platelet Volume 8.4 FL Neutrophils (%) (Auto) 73.9 % Lymphocytes (%) (Auto) 15.6 % Monocytes (%) (Auto) 8.7 % Eosinophils (%) (Auto) 1.1 % Basophils (%) (Auto) 0.7 % Neutrophils # (Auto) 7.1 TH/MM3 Lymphocytes # (Auto) 1.5 TH/MM3 Monocytes # (Auto) 0.8 TH/MM3 Eosinophils # (Auto) 0.1 TH/MM3 Basophils # (Auto) 0.1 TH/MM3 CBC Comment DIFF FINAL Differential Comment Blood Urea Nitrogen 8 MG/DL Creatinine 0.63 MG/DL Random Glucose 86 MG/DL Total Protein 6.2 GM/DL Albumin 3.1 GM/DL Calcium Level 7.9 MG/DL Alkaline Phosphatase 91 U/L Aspartate Amino Transf (AST/SGOT) 61 U/L Alanine Aminotransferase (ALT/SGPT) 136 U/L Total Bilirubin 1.6 MG/DL Sodium Level 140 MEQ/L Potassium Level 3.5 MEQ/L Chloride Level 108 MEQ/L Carbon Dioxide Level 23.6 MEQ/L Anion Gap 8 MEQ/L Estimat Glomerular Filtration Rate 114 ML/MIN Imaging Last Impressions Chest X-Ray 01/18/17 9464 Signed Impressions: Service Date/Time: Wednesday, January 18, 2017 18:51 - CONCLUSION: No acute disease. Kurt Adames MD Objective Remarks GENERAL: Awake alert and oriented talkative and cooperative SKIN: Warm and dry. HEAD: Atraumatic. Normocephalic. EYES: Pupils equal and round. No scleral icterus. No injection or drainage. Extraocular muscles intact ENT: No nasal bleeding or discharge. Mucous membranes pink and moist. Tongue is midline NECK: Trachea midline. No JVD. Neck is supple CARDIOVASCULAR: Regular rate and rhythm. S1-S2 no S3 or S4 no heave or thrill or rub or gallop RESPIRATORY: No accessory muscle use. Coarse breath sounds bilaterally. Breath sounds equal bilaterally. GASTROINTESTINAL: Abdomen soft, non-tender, nondistended. Hepatic and splenic margins not palpable. MUSCULOSKELETAL: Extremities without clubbing, cyanosis, or edema. No obvious deformities. NEUROLOGICAL: Awake and alert. No obvious cranial nerve deficits. Motor grossly within normal limits. Five out of 5 muscle strength in the arms and legs. Normal speech. PSYCHIATRIC: Appropriate mood and affect; insight and judgment normal. Procedures CPR and Narcan Medications and IVs Current Medications Sodium Chloride 1,000 ml @ 999 mls/hr BOLUS ONCE IV Last administered on 21:02; Start 01/18/17 at 18:45; Stop 01/18/17 at 19:45; Status DC Naloxone HCl (Narcan Inj) 2 mg ONCE ONCE IV PUSH Last administered on 18:20; Start 01/18/17 at 18:45; Stop 01/18/17 at 18:46; Status DC Ondansetron HCl (Zofran Inj) 4 mg ONCE ONCE IV PUSH Last administered on 01/18 18:24; Start 01/18/17 at 18:45; Stop 01/18/17 at 18:46; Status DC Sodium Chloride 1,000 ml @ 999 mls/hr BOLUS ONCE IV Last administered on 18:30; Start 01/18/17 at 18:45; Stop 01/18/17 at 19:45; Status DC Potassium Chloride (KCl) 20 meq ONCE ONCE PO Last administered on 01/19/17 01:05; Start 01/18/17 at 20:30; Stop 01/18/17 at 20:31; Status DC Miscellaneous Information 1 Q361D XX ; Start 01/18/17 at 20:45 Chlorhexidine Gluconate (Chlorhexidine 2% Cloth) 3 pack Taper DAILY@04 TOP Last administered on 01/19/17 04:15; Start 01/19/17 at 04:00; Stop 01/15/18 at 03:59 Chlorhexidine Gluconate (Chlorhexidine 2% Cloth) 3 pack UNSCH PRN TOP HYGIENIC CARE; Start 01/18/17 at 20:45 Sodium Chloride 1,000 ml @ 100 mls/hr Q10H IV Last administered on 01/19/17 07:04; Start 01/18/17 at 21:00 Sodium Chloride (NS Flush) 2 ml UNSCH PRN IV FLUSH FLUSH AFTER USING IV ACCESS ; Start 01/18/17 at 20:45 Sodium Chloride (NS Flush) 2 ml BID IV FLUSH ; Start 01/18/17 at 21:00 Ondansetron HCl (Zofran Inj) 4 mg Q6H PRN IVP NAUSEA OR VOMITING; Start at 20:45 Acetaminophen (Tylenol) 650 mg Q6H PRN PO FEVER/PAIN SCALE 1 TO 2; Start 01/18 at 20:45 Senna/Docusate Sodium (Cecilia-Colace) 1 tab BID PO ; Start 01/18/17 at 21:00 Magnesium Hydroxide (Milk Of Magnesia Liq) 30 ml Q12H PRN PO Mild constipation ; Start 01/18/17 at 20:45 Sennosides (Senokot) 17.2 mg Q12H PRN PO Moderate constipation; Start at 20:45 Bisacodyl (Dulcolax Supp) 10 mg DAILY PRN RECTAL SEVERE CONSITIPATION; Start 01/18/17 at 20:45 Lactulose (Lactulose Liq) 30 ml DAILY PRN PO SEVERE CONSITIPATION; Start 01/18 at 20:45 Urinary Catheter: No Vascular Central Line Catheter: No A/P Problem List: (1) Intentional heroin overdose ICD Code: T40.1X2A - Poisoning by heroin, intentional self-harm, initial encounter Status: Acute (2) Cardiopulmonary arrest with successful resuscitation ICD Code: I46.9 - Cardiac arrest, cause unspecified Status: Acute (3) Suicide attempt ICD Code: T14.91XA - Suicide attempt, initial encounter (4) Alcohol intoxication ICD Code: F10.929 - Alcohol use, unspecified with intoxication, unspecified (5) Leukocytosis ICD Code: D72.829 - Elevated white blood cell count, unspecified (6) Renal insufficiency ICD Code: N28.9 - Disorder of kidney and ureter, unspecified Assessment and Plan 1. Heroin Overdose: Intentional. Found by friend who brought her to ER, s/p Narcan, now AA&O 2. S/p Cardiopulmonary Arrest: w/ successful resuscitation, unresponsive while in Triage after Heroin OD, CPR initiated, s/p Narcan w/ immediate reversal. Currently AA&O, back to baseline, ambulating w/o assistance. Will admit to ICU for close monitoring in light of cardiopulmonary arrest. NO analgesics. 3. Suicide Attempt: Intentional Heroin OD in suicide attempt, reports having emotional pain after finding out girlfriend cheated on her. Currently under Camara Act. Consult PsychiatricKita Williamson. 4. Alcohol Intoxication: Alcohol 89. Seizure Precautions, hold CIWA in light of recent Cardiac Arrest from OD. 5. Tobacco Abuse: NicoDerm prn if needed. 6. DVT Prophylaxis: SCD/Teds. Camara act has been lifted by psychiatry Wants to go home Discharge to home today Continue on Mucinex Continue on NicoDerm Continue on multivitamin thiamine and folic acid We'll refill her Dilantin Has been cleared by psychiatry can discharged to home Problem Qualifiers (1) Intentional heroin overdose: Qualified Codes: T40.1X2A - Poisoning by heroin, intentional self-harm, initial encounter Jean Morillo DO Jan 19, 2017 14:04
[2017-01-19] MEDS ORDERED: NAPR500 PO (14:09)
[2017-01-19] MEDS ORDERED: VITA100T54 PO (14:09)
[2017-01-19] MEDS ORDERED: MUCI30TA2 PO (14:09)
[2017-01-19] MEDS ORDERED: FOLI800T PO (14:09)
[2017-01-19] MEDS ORDERED: MULTTAB67 PO (14:09)
--- NOTE | 2017-01-19 14:10 | HHI.DS ---
Discharge Summary Admission Date Jan 18, 2017 at 20:35 Discharge Date: Jan 19, 2017 Admitting Diagnosis Post Code after heroin overdose, camara act (1) Intentional heroin overdose ICD Code: T40.1X2A - Poisoning by heroin, intentional self-harm, initial encounter Diagnosis: Principal Status: Acute (2) Cardiopulmonary arrest with successful resuscitation ICD Code: I46.9 - Cardiac arrest, cause unspecified Diagnosis: Principal Status: Acute (3) Suicide attempt ICD Code: T14.91XA - Suicide attempt, initial encounter Diagnosis: Principal (4) Alcohol intoxication ICD Code: F10.929 - Alcohol use, unspecified with intoxication, unspecified Diagnosis: Principal (5) Leukocytosis ICD Code: D72.829 - Elevated white blood cell count, unspecified Diagnosis: Principal (6) Renal insufficiency ICD Code: N28.9 - Disorder of kidney and ureter, unspecified Diagnosis: Secondary Procedures CPR and Narcan Brief History - From Admission This is a 27-year-old female was brought to the ER by her friend secondary to apparent intentional ingestion of Heroin in suicide attempt. While in Triage, patient became unresponsive at which time CPR was initiated w/ success. S/p Narcan. Pt currently awake, alert and oriented x4. Ambulating without assistance. States she attempted suicide after finding out her girlfriend cheated on her. Currently under Camara Act. BP 158/96, HR 119, O2 sat 100% on RA. WBC 22.6. K+ 3.2. GFR 51. LFTs mildly elevated. Trop negative. HCG negative. INR 1.0. U/a negative. Urine Drug Screen positive for Opiates, Amphetamines, Benzo. Alcohol 98. CXR w/ no acute findings. CBC/BMP: 01/19/17 0820 01/19/17 0820 Significant Findings Laboratory Tests Test 01/18/17 18:30 01/18/17 18:38 01/18/17 18:50 01/18/17 23:00 Random Glucose 154 MG/DL (74-106) Alkaline Phosphatase 118 U/L (45-117) Aspartate Amino Transf (AST/SGOT) 67 U/L (15-37) Alanine Aminotransferase (ALT/SGPT) 177 U/L (10-53) Total Bilirubin 1.7 MG/DL (0.2-1.0) Sodium Level 135 MEQ/L (136-145) Potassium Level 3.2 MEQ/L (3.5-5.1) Carbon Dioxide Level 19.2 MEQ/L (21.0-32.0) Estimat Glomerular Filtration Rate 51 ML/MIN (>89) Troponin I LESS THAN 0.02 NG/ML Salicylates Level LESS THAN 1.7 MG/DL Acetaminophen Level LESS THAN 2.0 MCG/ML Ethyl Alcohol Level 98 MG/DL (0-5) White Blood Count 22.6 TH/MM3 (4.0-11.0) Platelet Count 471 TH/MM3 (150-450) Neutrophils # (Manual) 12.4 TH/MM3 (1.8-7.7) Platelet Estimate HIGH (NORMAL) Urine Turbidity HAZY (CLEAR) Urine Occult Blood SMALL (NEG) Urine Leukocyte Esterase TRACE (NEG) Urine RBC 6 /hpf (0-3) Urine Bacteria RARE /hpf (NONE) Urine Opiates Screen POS (NEG) Urine Amphetamines Screen POS (NEG) Urine Benzodiazepines Screen POS (NEG) Test 01/19/17 08:20 Neutrophils (%) (Auto) 73.9 % (16.0-70.0) Monocytes (%) (Auto) 8.7 % (0.0-8.0) Total Protein 6.2 GM/DL (6.4-8.2) Albumin 3.1 GM/DL (3.4-5.0) Calcium Level 7.9 MG/DL (8.5-10.1) Aspartate Amino Transf (AST/SGOT) 61 U/L (15-37) Alanine Aminotransferase (ALT/SGPT) 136 U/L (10-53) Total Bilirubin 1.6 MG/DL (0.2-1.0) Chloride Level 108 MEQ/L (98-107) Imaging Last Impressions Chest X-Ray 01/18/17 3314 Signed Impressions: Service Date/Time: Wednesday, January 18, 2017 18:51 - CONCLUSION: No acute disease. Kurt Adames MD PE at Discharge GENERAL: Awake alert and oriented talkative and cooperative SKIN: Warm and dry. HEAD: Atraumatic. Normocephalic. EYES: Pupils equal and round. No scleral icterus. No injection or drainage. Extraocular muscles intact ENT: No nasal bleeding or discharge. Mucous membranes pink and moist. Tongue is midline NECK: Trachea midline. No JVD. Neck is supple CARDIOVASCULAR: Regular rate and rhythm. S1-S2 no S3 or S4 no heave or thrill or rub or gallop RESPIRATORY: No accessory muscle use. Coarse breath sounds bilaterally. Breath sounds equal bilaterally. GASTROINTESTINAL: Abdomen soft, non-tender, nondistended. Hepatic and splenic margins not palpable. MUSCULOSKELETAL: Extremities without clubbing, cyanosis, or edema. No obvious deformities. NEUROLOGICAL: Awake and alert. No obvious cranial nerve deficits. Motor grossly within normal limits. Five out of 5 muscle strength in the arms and legs. Normal speech. PSYCHIATRIC: Appropriate mood and affect; insight and judgment normal. Hospital Course This is a 27-year-old female was brought to the ER by her friend secondary to apparent intentional ingestion of Heroin in suicide attempt. While in Triage, patient became unresponsive at which time CPR was initiated w/ success. S/p Narcan. Pt currently awake, alert and oriented x4. Ambulating without assistance. States she attempted suicide after finding out her girlfriend cheated on her. Currently under Camara Act. BP 158/96, HR 119, O2 sat 100% on RA. WBC 22.6. K+ 3.2. GFR 51. LFTs mildly elevated. Trop negative. HCG negative. INR 1.0. U/a negative. Urine Drug Screen positive for Opiates, Amphetamines, Benzo. Alcohol 98. CXR w/ no acute findings. 01-19 patient has been cleared by psychiatry Camara act HAS been lifted Wants to go home Wants to continue to live Has some pain from chest compressions Has some cough We'll give incentive spirometry Mucinex Continue on multivitamin thiamine and folic acid Refill her Dilantin And discharge her to home Pt Condition on Discharge: Fair Discharge Disposition: Discharge Home Discharge Time: > 30 minutes Discharge Instructions DIET: Follow Instructions for: As Tolerated, No Restrictions Speech Therapy-Diet Recommends: Regular Activities you can perform: Regular-No Restrictions Other Activity Instructions: 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 Stop all illicit drug use No cocaine no amphetamines no heroin No methamphetamines Stop smoking No alcohol Follow up Referrals: PCP Follow-up - 2-3 Days New Medications: Dextromethorphan-Guaifenesin (Mucinex DM) 30-600 Mg Tab 1 TAB PO BID PRN for CHEST CONGESTION AND/OR COUGH, #60 TAB 0 Refills Folic Acid (Folic Acid) 0.8 Mg Tab 800 MCG PO DAILY for Nutritional Supplement, #30 TAB 0 Refills Multiple Vitamin (Multiple Vitamin) 1 Tab 1 TAB PO DAILY for Nutritional Supplement, #30 TAB 0 Refills Naproxen (Naprosyn) 500 Mg Tab 500 MG PO BID PRN for PAIN, #60 TAB 0 Refills TAKE WITH FOOD Thiamine (Vitamin B-1) 100 Mg Tab 100 MG PO DAILY for Nutritional Supplement, #30 TAB 0 Refills Continued Medications: Phenytoin Extended (Dilantin) 100 Mg Cap 100 MG PO TID for Control Seizures, #90 CAP 1 Refill (This prescription has been renewed) Jean Morillo DO Jan 19, 2017 14:10
== END 2017-01-19 19:45 | disposition home or self-care (01) | DRG 917 ==
LOC: EDSEX 18:21 → NEPC 18:21 → EDBD 20:35 → NEDA 20:35 → N03A 21:59 → N03B 22:04
PROVIDERS: ADMIT Hospitalist; ATTEND Hospitalist
PROC: 5A12012 Performance of Cardiac Output, Single, Manual (ICD-10-PCS; principal; 2017-01-18)
DX: T40.1X2A Poisoning by heroin, intentional self-harm, initial encounter (principal); I46.8 Cardiac arrest due to other underlying condition; E87.6 Hypokalemia; N28.9 Disorder of kidney and ureter, unspecified; D72.829 Elevated white blood cell count, unspecified; F19.10 Other psychoactive substance abuse, uncomplicated; R05 Cough; F10.129 Alcohol abuse with intoxication, unspecified; F32.9 Major depressive disorder, single episode, unspecified; Y90.4 Blood alcohol level of 80-99 mg/100 ml; Z72.0 Tobacco use; Z91.5 Personal history of self-harm
CPT/HCPCS: 71010; 80053; 80307; 81001; 82550; 82552; 83880; 84484; 84702; 85007; 85025; 85027; 85610; 85730; 87641; J2310; J2405; J7030